=== PATIENT | female | born 1985 | race Caucasian/White ===

== ENCOUNTER 2017-01-02 20:49 | Emergency (ER) | payer BC ==
[~2017-01-02] VITALS: Ht 157.5 cm; Wt 73.0 kg
[2017-01-02 20:58] VITALS: Ht 157.5 cm; Wt 73.0 kg
[2017-01-02] MEDS ORDERED: morphine 4 MG/ML VIAL IV STA (21:14)
[2017-01-02] MEDS ORDERED: ONDANSETRON 4 MG INJ IV STA (21:14)
[2017-01-02] MEDS ORDERED: SOD CHLORIDE 0.9% 1,000 ML IV STA (21:14)
[2017-01-02 21:46] LABS: ADD SCAN DIFF NO
[2017-01-02 21:50] LABS: BASOPHILS % 0.4 % (0.0-2.0); EOSINOPHILS # 0.3 10^3/ul (0.0-0.5); EOSINOPHILS % 3.4 % (0.0-7.0); HEMATOCRIT 37.2 % (37.0-47.0); HEMOGLOBIN 12.2 g/dl (12.0-16.0); LYMPHOCYTES # 2.1 10^3/ul (0.8-2.9); LYMPHOCYTES % 29.3 % (15.0-51.0); MEAN CORPUSCULAR HEMOGLOBIN 29.5 pg (29.0-33.0); MEAN CORPUSCULAR HGB CONC 32.8 g/dl (32.0-37.0); MEAN CORPUSCULAR VOLUME 90.1 fl (82.0-101.0); MEAN PLATELET VOLUME 10.1 fl (7.4-10.4); MONOCYTE # 0.6 10^3/ul (0.3-0.9); MONOCYTES % 8.8 % (0.0-11.0); NEUTROPHIL # 4.2 10^3/ul (1.6-7.5); PLATELET COUNT 303 10^3/UL (140-415); RED BLOOD COUNT 4.13 10^6/ul (4.20-5.40); RED CELL DISTRIBUTION WIDTH 13.2 % (11.5-14.5); WHITE BLOOD COUNT 7.3 10^3/ul (4.8-10.8)
[2017-01-02 21:54] LABS: ADD UMIC YES; UR BILIRUBIN (Dip) NEGATIVE (NEGATIVE); UR BLOOD (Dip) NEGATIVE (NEGATIVE); UR CLARITY CLEAR (CLEAR); UR COLOR LT. YELLOW (YELLOW); UR GLUCOSE (Dip) NEGATIVE (NEGATIVE); UR KETONES (Dip) NEGATIVE (NEGATIVE); UR LEUKOCYTE ESTERASE (Dip) 1+ (NEGATIVE); UR NITRITE (Dip) NEGATIVE (NEGATIVE); UR TOTAL PROTEIN (Dip) NEGATIVE (NEGATIVE); UR UROBILINOGEN (Dip) 0.2 E.U./dL (0.1-1.0)
[2017-01-02 22:01] LABS: URINE RBCS NONE SEEN /HPF (0)
[2017-01-02 22:08] LABS: ALBUMIN 4.5 g/dl (3.3-4.9); ALBUMIN/GLOBULIN RATIO 1.6; BILIRUBIN,INDIRECT 0.1 mg/dl (0-1.1); BILIRUBIN,TOTAL 0.1 mg/dl (0.2-1.3); CALCIUM 8.5 mg/dl (8.4-10.2); CREATININE 0.67 mg/dl (0.44-1.00); POTASSIUM 4.2 mmol/L (3.5-5.1); TOTAL PROTEIN 7.3 g/dl (6.1-8.1)
--- NOTE | 2017-01-02 23:05 | RADRPT ---
PROCEDURE: CT abdomen and pelvis without contrast. CLINICAL INDICATION: Abdominal pain TECHNIQUE: CT scan of the abdomen and pelvis without contrast was performed. Sagittal and coronal reformatted images were obtained from the axial source images. CTDI = 10.43 mGy; DLP = 572.10 mGy-c m COMPARISON: None. FINDINGS: Visualized lower thorax: Minimal dependent right lower lobe subsegmental atelectasis, the left lung base is clear. There is no evidence for pleural effusion. Liver, gallbladder, pancreas and spleen: The liver is normal and size, contour and attenuation. Th ere is no evidence for a liver mass or ductal dilatation. The gallbladder is contracted but otherwi se unremarkable. No common bile duct abnormality is demonstrated. The pancreas is unremarkable. T he spleen is normal in size. Adrenal glands and genitourinary system: The adrenal glands are normal bilaterally. The kidneys are normal and size, contour and attenuation with no evidence for masses, calculi or hydronephrosis. T he ureters are unremarkable. No urinary bladder abnormality is demonstrated. The uterus and adnexa are unremarkable. There is no evidence of free fluid in the cul-de-sac. Gastrointestinal system: The stomach is normal in caliber with no abnormality of significance. The small bowel is normal in caliber with no ileus, obstruction or wall thickening. There is no evidenc e of appendicitis. A moderate to marked amount of fecal debris throughout the colon is concerning f or constipation. There is no evidence for colitis or diverticulitis. Peritoneum, retroperitoneum, lymph nodes and vessels: The abdominal aorta is normal in caliber. The re is no evidence for atherosclerotic calcification. The inferior vena cava is unremarkable. There is no evidence for adenopathy or mass. There is no ascites. No pneumoperitoneum is present Osseous structures and musculoskeletal findings: There is no fracture, lytic or blastic lesion. No muscular abnormality or soft tissue pathology is present. RPTAT:HJJR IMPRESSION: Constipation pattern without evidence of acute intra-abdominal or intrapelvic pathology. Physician Kelly Date Time Electronically viewed and signed by Physician Kelly on 01/02/2017 23:05 JR/
[2017-01-02] MEDS ORDERED: DOCU100T9 PO (23:31)
[2017-01-02] MEDS ORDERED: NITR-58 PO (23:31)
[2017-01-02] MEDS ORDERED: IBUP-1542 PO (23:32)
[2017-01-02 23:56] VITALS: BP 135/78; PULSE 68; RESP 17
--- NOTE | 2017-01-03 01:52 | ERD ---
ER Documentation Chief Complaint Date/Time DATE: 01/03/17 TIME: 01:51 Chief Complaint RT SIDED ABD/BACK/NECK PAIN, BLOATED, INDIGESTION. NAUSEA TAKES ZOFRAN. HPI This is a 31-year-old female presents to the ER with multiple complaints. Patient states that she has been having lower back pain over the last 2 weeks. Yesterday patient began to have generalized abdominal pain with bloating and indigestion. She went to an urgent care yesterday and was given Zofran. Patient is also complaining of nausea however denies vomiting or diarrhea. She denies any fevers or chills. She denies any urinary frequency or dysuria. Patient denies any back trauma. She denies any urine or bowel incontinence. She denies saddle like anesthesia. ROS 12 point review of systems was done, all negative except per HPI. Medications Home Meds Active Scripts Ibuprofen* (Motrin*) 600 Mg Tab, 600 MG PO Q6, #30 TAB Prov:ARIANNE GARLAND 01/02/17 Docusate Sodium (Stool Softener) 100 Mg Tablet, 100 MG PO BID Y for constipation for 3 Days, TAB Prov:ARIANNE GARLAND C 01/02/17 Nitrofurantoin Monohyd Macrocr* (Macrobid*) 100 Mg Capsr, 100 MG PO BID for 7 Days, CAP Prov:DADA,ARIANNE C 01/02/17 PMhx/Soc Medical and Surgical Hx: pt denies Surgical Hx History of Surgery: No Anesthesia Reaction: No Hx Neurological Disorder: No Hx Respiratory Disorders: No Hx Cardiac Disorders: No Hx Psychiatric Problems: No Hx Miscellaneous Medical Probl: No (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 NECK; no c-spine tenderness, no crepitus or step off's. HEENT: Atraumatic. CHEST: Clear to auscultation bilaterally. There are no rales, wheezes or rhonchi. HEART: Regular rate and rhythm. No murmurs, clicks, rubs or gallops. ABDOMEN: Soft, nontender and nondistended. Good bowel sounds. No rebound or guarding. No gross peritonitis. No gross organomegaly or masses. No Leon sign or McBurney point tenderness. no pulsatile masses BACK: No midline or flank tenderness. No lumbar spine tenderness. No step- offs. negative straight leg test EXTREMITIES: patient has full ROM of bilateral upper and lower extremities. strength and sensation is intact. NEURO: Alert and oriented. SKIN: There is no apparent rash or petechia. The skin is warm and dry. Results 24 hrs Laboratory Tests Test 01/02/17 21:35 01/02/17 21:40 White Blood Count 7.310^3/ul Red Blood Count 4.1310^6/ul Hemoglobin 12.2g/dl Hematocrit 37.2% Mean Corpuscular Volume 90.1fl Mean Corpuscular Hemoglobin 29.5pg Mean Corpuscular Hemoglobin Concent 32.8g/dl Red Cell Distribution Width 13.2% Platelet Count 39513^3/UL Mean Platelet Volume 10.1fl Neutrophils % 58.0% Lymphocytes % 29.3% Monocytes % 8.8% Eosinophils % 3.4% Basophils % 0.4% Nucleated Red Blood Cells % 0.0/100WBC Neutrophils # 4.210^3/ul Lymphocytes # 2.110^3/ul Monocytes # 0.610^3/ul Eosinophils # 0.310^3/ul Basophils # 0.010^3/ul Nucleated Red Blood Cells # 0.010^3/ul Sodium Level 140mmol/L Potassium Level 4.2mmol/L Chloride Level 105mmol/L Carbon Dioxide Level 29mmol/L Anion Gap 10 Blood Urea Nitrogen 8mg/dl Creatinine 0.67mg/dl Glucose Level 85mg/dl Calcium Level 8.5mg/dl Total Bilirubin 0.1mg/dl Direct Bilirubin 0.00mg/dl Indirect Bilirubin 0.1mg/dl Aspartate Amino Transf (AST/SGOT) 42IU/L Alanine Aminotransferase (ALT/SGPT) 39IU/L Alkaline Phosphatase 110IU/L Total Protein 7.3g/dl Albumin 4.5g/dl Globulin 2.80g/dl Albumin/Globulin Ratio 1.60 Lipase 134U/L Urine Color LT. YELLOW Urine Clarity CLEAR Urine pH 7.5 Urine Specific [place] <=1.005 Urine Ketones NEGATIVE Urine Nitrite NEGATIVE Urine Bilirubin NEGATIVE Urine Urobilinogen 0.2 E.U./dL Urine Leukocyte Esterase 1+ Urine Microscopic RBC NONE SEEN/HPF Urine Microscopic WBC 2-5/HPF Urine Epithelial Cells MODERATE Urine Hemoglobin NEGATIVE Urine Glucose NEGATIVE% Urine Total Protein NEGATIVE Current Medications Medications (Trade) Dose Ordered Sig/Reggie Route PRN Reason Start Time Stop Time Status Last Admin Dose Admin Sodium Chloride (NS) 1,000 ml @ 1,000 mls/hr Q1H STAT IV 01/02/17 21:14 01/02/17 22:13 DC 01/02/17 21:49 Morphine Sulfate (morphine) 6 mg ONCE STAT IV 01/02/17 21:14 01/02/17 21:17 DC 01/02/17 21:48 Ondansetron HCl (Zofran Inj) 4 mg ONCE STAT IV 01/02/17 21:14 01/02/17 21:17 DC 01/02/17 21:41 Procedures/MDM Differential Diagnosis: GERD, gastritis, peptic ulcer disease, pancreatitis, cholecystitis, choledocholithiasis, biliary colic, cholangitis, appendicitis, AAA, [id number], ACS/SD, Pnuemonia. Suspicion for acute abdomen is low, patients abdominal exam is benign and her diagnostic studies are negative for acute abdomen. Patient was found to have some constipation and a UTI. She will be treated for this. Patient needs to f/u with her PCP within 1-2 days or return to ER sooner if symptoms worsen. My medical decision making was shared with the patient, she understands and agrees with the plan. Departure Diagnosis: Primary Impression: Constipation Additional Impression: UTI (urinary tract infection) Condition: Stable Patient Instructions: Understanding Urinary Tract Infections (UTIs), Constipation (Adult) Additional Instructions: Call your primary care doctor TOMORROW for an appointment during the next 1-2 days.See the doctor sooner or return here if your condition worsens before your appointment time. ARIANNE GARLAND Jan 03, 2017 01:52 ARIANNE GARLAND Jan 03, 2017 01:52
== END 2017-01-02 23:57 | disposition home or self-care (01) ==
LOC: FTE 20:49
DX: K59.00 Constipation, unspecified (principal); N39.0 Urinary tract infection, site not specified; F17.210 Nicotine dependence, cigarettes, uncomplicated; R11.0 Nausea
CPT/HCPCS: 36415; 74176; 80053; 81001; 83690; 85025; 96361; 96374; 96375; J2270; J2405; J7030; Z7502

== ENCOUNTER 2017-07-13 15:35 | Emergency (ER) | payer BC, OTHER ==
[~2017-07-13] VITALS: Wt 77.2 kg
[~2017-07-13 15:35] MED LIST: DOCU100T9 PO; IBUP-1542 PO; NITR-58 PO
[2017-07-13] MEDS ORDERED: SOD CHLORIDE 0.9% 1,000 ML IV STA (17:49)
[2017-07-13] MEDS ORDERED: ONDANSETRON 4 MG INJ IV STA (17:49)
[2017-07-13] MEDS ORDERED: KETOROLAC 30 MG INJ IV STA (17:49)
[2017-07-13 18:30] LABS: ADD UMIC YES; UR ASCORBIC ACID NEGATIVE (NEGATIVE); UR BILIRUBIN (Dip) NEGATIVE (NEGATIVE); UR BLOOD (Dip) NEGATIVE (NEGATIVE); UR CLARITY SLIGHTLY CLOUDY (CLEAR); UR COLOR YELLOW (YELLOW); UR GLUCOSE (Dip) NEGATIVE (NEGATIVE); UR KETONES (Dip) NEGATIVE (NEGATIVE); UR LEUKOCYTE ESTERASE (Dip) TRACE Leu/ul (NEGATIVE); UR NITRITE (Dip) NEGATIVE (NEGATIVE); UR RBC 2 /HPF (0-5); UR SPECIFIC GRAVITY (Dip) 1.004 (1.003-1.030); UR SQUAMOUS EPITHELIAL CELL FEW /HPF (FEW); UR TOTAL PROTEIN (Dip) NEGATIVE (NEGATIVE); UR UROBILINOGEN (Dip) NEGATIVE (NEGATIVE)
[2017-07-13 18:54] LABS: BASOPHIL # 0.1 10^3/ul (0.0-0.1); BASOPHILS % 0.5 % (0.0-2.0); EOSINOPHILS # 0.2 10^3/ul (0.0-0.5); EOSINOPHILS % 2.3 % (0.0-7.0); HEMOGLOBIN 12.6 g/dl (12.0-16.0); LYMPHOCYTES # 3.1 10^3/ul (0.8-2.9); LYMPHOCYTES % 33.7 % (15.0-51.0); MEAN CORPUSCULAR HEMOGLOBIN 28.3 pg (29.0-33.0); MEAN CORPUSCULAR HGB CONC 33.2 g/dl (32.0-37.0); MEAN CORPUSCULAR VOLUME 85.4 fl (82.0-101.0); MEAN PLATELET VOLUME 9.6 fl (7.4-10.4); MONOCYTE # 0.7 10^3/ul (0.3-0.9); MONOCYTES % 7.4 % (0.0-11.0); NEUTROPHIL # 5.1 10^3/ul (1.6-7.5); NEUTROPHILS % 55.8 % (39.0-77.0); PLATELET COUNT 306 10^3/UL (140-415); RED BLOOD COUNT 4.45 10^6/ul (4.20-5.40); RED CELL DISTRIBUTION WIDTH 13.7 % (11.5-14.5); WHITE BLOOD COUNT 9.2 10^3/ul (4.8-10.8)
[2017-07-13 19:16] LABS: ALBUMIN 4.1 g/dl (3.3-4.9); ALBUMIN/GLOBULIN RATIO 1.1; BILIRUBIN,INDIRECT 0.1 mg/dl (0-1.1); BILIRUBIN,TOTAL 0.1 mg/dl (0.2-1.3); CALCIUM 9.2 mg/dl (8.4-10.2); CREATININE 0.82 mg/dl (0.44-1.00); POTASSIUM 4.3 mmol/L (3.5-5.1); TOTAL PROTEIN 7.8 g/dl (6.1-8.1)
--- NOTE | 2017-07-13 19:49 | RADRPT ---
PROCEDURE: CT abdomen and pelvis without contrast. CLINICAL INDICATION: Abdominal Pain TECHNIQUE: CT scan of the abdomen and pelvis without contrast was performed and is reconstructed a t 2.5 mm contiguous axial intervals from the dome of the diaphragm to the inferior pubic rami.. The patient was scanned without intravenous contrast. Sagittal and coronal reformatted images were obt ained from the axial source images. The calculated radiation dose measures 619 mGy centimeters. The CTDI measures and 11 mGy. Individualized dose optimization technique was used for the performance of this exam. This included 1. Automated exposure control. 2. Adjustment of the mA and / or kV according to the patient's size. 3. Use of iterative reconstructed technique. COMPARISON: CT abdomen pelvis January 02, 2017 FINDINGS: The lung bases are clear of any infiltrate or nodule. No effusion is seen. The liver is of normal size, contour and attenuation with no mass or ductal dilatation. No gallston es are visualized. No splenic, adrenal or pancreatic abnormalities present. Kidneys are of normal size and contour. No hydronephrosis, calculus or masses seen. Ureters are o f normal course and caliber with no stone. No bladder mass or stone is present. Uterus is unremarka ble. No adnexal mass is seen. There is no aneurysm. No adenopathy is present. No bowel mass or obstruction is present. The appendix is normal. No phlegmon, ascites or pneumop eritoneum is visualized. The osseous structures are intact. IMPRESSION: No evidence of urolithiasis, obstructive uropathy, diverticulitis or appendicitis. .Justin Kaur MD, MD Date Time Electronically viewed and signed by .Justin Kaur MD, on 07/13/2017 19:48 .A/
[2017-07-13] MEDS ORDERED: CIPR500T4 PO (20:03)
--- NOTE | 2017-07-13 20:15 | ERD ---
ER Documentation Chief Complaint Chief Complaint left flank pain with frequency x 3 weeks HPI 32-year-old female complaining of left flank pain with frequency 3 weeks. Patient states it she was diagnosed with a urinary tract infection last week and has been taking Macrobid however she had left flank pain at that time. Denies fever but has nausea and headache. Denies abdominal pain. Denies hematuria. Denies changes in bowel movement. Has never had this type of flank pain in the past. Denies nephrolithiasis history. Denies medical problems. NKDA. Surgical history: Denies. Social history: Denies. ROS All systems reviewed and are negative except as per history of present illness. Medications Home Meds Active Scripts Ciprofloxacin Hcl* (Ciprofloxacin Hcl*) 500 Mg Tablet, 500 MG PO BID for 7 Days , TAB Prov:YARITZA SARAVIA PA-C 07/13/17 Ibuprofen* (Motrin*) 600 Mg Tab, 600 MG PO Q6, #30 TAB Prov:ARIANNE GARLAND 01/02/17 Docusate Sodium (Stool Softener) 100 Mg Tablet, 100 MG PO BID Y for constipation for 3 Days, TAB Prov:ELANA GARLANDNA Divya 01/02/17 Nitrofurantoin Monohyd Macrocr* (Macrobid*) 100 Mg Capsr, 100 MG PO BID for 7 Days, CAP Prov:DADA,ARIANNE C 01/02/17 PMhx/Soc Medical and Surgical Hx: pt denies Medical Hx, pt denies Surgical Hx History of Surgery: No Anesthesia Reaction: No Hx Neurological Disorder: No Hx Respiratory Disorders: No Hx Cardiac Disorders: No Hx Psychiatric Problems: No Hx Miscellaneous Medical Probl: No (currently on methadone treatment, gastritis ) Hx Alcohol Use: No (glass of wine/ week) Hx Substance Use: Yes (currently on methadone) Hx Tobacco Use: Yes (1/2 pack/ day) Smoking Status: Never smoker Physical Exam Vitals Vital Signs Date Time Temp Pulse Resp B/P Pulse Ox O2 Delivery O2 Flow Rate FiO2 07/13/17 15:57 98.1 86 19 131/71 99 Physical Exam GENERAL: The patient is well-appearing, well-nourished, in no acute distress CHEST: Clear to auscultation bilaterally. There are no rales, wheezes or rhonchi. HEART: Regular rate and rhythm. No murmurs, clicks, rubs or gallops. No S3 or S4. ABDOMEN:Soft, nontender and nondistended. Good bowel sounds. No rebound or guarding. No gross peritonitis. No gross organomegaly or masses. No Leon sign or McBurney point tenderness. BACK: Questionable CVA tenderness with left-sided flank pain. No distention. Skin changes. SKIN: No rashes. Result Diagram: 07/13/17 1845 07/13/17 1845 Results 24 hrs Laboratory Tests Test 07/13/17 18:15 07/13/17 18:45 Urine Color YELLOW Urine Clarity SLIGHTLY CLOUDY Urine pH 5.0 Urine Specific [place] 1.004 Urine Ketones NEGATIVEmg/dL Urine Nitrite NEGATIVEmg/dL Urine Bilirubin NEGATIVEmg/dL Urine Urobilinogen NEGATIVEmg/dL Urine Leukocyte Esterase TRACELeu/ul Urine Microscopic RBC 2/HPF Urine Microscopic WBC 1/HPF Urine Squamous Epithelial Cells FEW/HPF Urine Hemoglobin NEGATIVEmg/dL Urine Glucose NEGATIVEmg/dL Urine Total Protein NEGATIVEmg/dl White Blood Count 9.210^3/ul Red Blood Count 4.4510^6/ul Hemoglobin 12.6g/dl Hematocrit 38.0% Mean Corpuscular Volume 85.4fl Mean Corpuscular Hemoglobin 28.3pg Mean Corpuscular Hemoglobin Concent 33.2g/dl Red Cell Distribution Width 13.7% Platelet Count 07439^3/UL Mean Platelet Volume 9.6fl Neutrophils % 55.8% Lymphocytes % 33.7% Monocytes % 7.4% Eosinophils % 2.3% Basophils % 0.5% Nucleated Red Blood Cells % 0.0/100WBC Neutrophils # 5.110^3/ul Lymphocytes # 3.110^3/ul Monocytes # 0.710^3/ul Eosinophils # 0.210^3/ul Basophils # 0.110^3/ul Nucleated Red Blood Cells # 0.010^3/ul Sodium Level 141mmol/L Potassium Level 4.3mmol/L Chloride Level 101mmol/L Carbon Dioxide Level 30mmol/L Anion Gap 14 Blood Urea Nitrogen 12mg/dl Creatinine 0.82mg/dl Glucose Level 92mg/dl Calcium Level 9.2mg/dl Total Bilirubin 0.1mg/dl Direct Bilirubin 0.00mg/dl Indirect Bilirubin 0.1mg/dl Aspartate Amino Transf (AST/SGOT) 32IU/L Alanine Aminotransferase (ALT/SGPT) 44IU/L Alkaline Phosphatase 133IU/L Total Protein 7.8g/dl Albumin 4.1g/dl Globulin 3.70g/dl Albumin/Globulin Ratio 1.10 Lipase 150U/L Serum HCG, Qualitative NEGATIVE Current Medications Medications (Trade) Dose Ordered Sig/Reggie Route PRN Reason Start Time Stop Time Status Last Admin Dose Admin Sodium Chloride (NS) 1,000 ml @ 1,000 mls/hr Q1H STAT IV 07/13/17 17:49 07/13/17 18:48 DC 07/13/17 19:00 Ondansetron HCl (Zofran Inj) 4 mg ONCE STAT IV 07/13/17 17:49 07/13/17 17:51 DC 07/13/17 18:58 Ketorolac Tromethamine (Toradol) 30 mg ONCE STAT IV 07/13/17 17:49 07/13/17 17:51 DC 07/13/17 18:59 Procedures/MDM DIAGNOSTIC IMAGING REPORT Patient: SANTHOSH PRITCHETT : 1985 Age: 32 Sex: F MR #: [id number] DOS: 07/13/17 1749 Ordering MD: EDGARDO SARAVIA PA-C Location: [facility] Room/Bed: PROCEDURE: CT abdomen and pelvis without contrast. CLINICAL INDICATION: Abdominal Pain TECHNIQUE: CT scan of the abdomen and pelvis without contrast was performed and is reconstructed at 2.5 mm contiguous axial intervals from the dome of the diaphragm to the inferior pubic rami.. The patient was scanned without intravenous contrast. Sagittal and coronal reformatted images were obtained from the axial source images. The calculated radiation dose measures 619 mGy centimeters. The CTDI measures and 11 mGy. Individualized dose optimization technique was used for the performance of this exam. This included 1. Automated exposure control. 2. Adjustment of the mA and / or kV according to the patient's size. 3. Use of iterative reconstructed technique. COMPARISON: CT abdomen pelvis January 02, 2017 FINDINGS: The lung bases are clear of any infiltrate or nodule. No effusion is seen. The liver is of normal size, contour and attenuation with no mass or ductal dilatation. No gallstones are visualized. No splenic, adrenal or pancreatic abnormalities present. Kidneys are of normal size and contour. No hydronephrosis, calculus or masses seen. Ureters are of normal course and caliber with no stone. No bladder mass or stone is present. Uterus is unremarkable. No adnexal mass is seen. There is no aneurysm. No adenopathy is present. No bowel mass or obstruction is present. The appendix is normal. No phlegmon , ascites or pneumoperitoneum is visualized. The osseous structures are intact. IMPRESSION: No evidence of urolithiasis, obstructive uropathy, diverticulitis or appendicitis. ER Course: 1L NS and IV toradol given in ED. MDM: 32-year-old female complaining of left-sided flank pain. I have low suspicion for pelvic emergency as patient's pelvic exam is non-concerning. I have low suspicion for nephrolithiasis or septic stone as no stone is appreciated on CT scan. I have low suspicion for other acute abdominal emergencies patient's abdominal exam is non-concerning and CT scan is within normal limits. Patient has been recently taking Macrobid for urinary tract infection. She states that the time of UTI diagnosis she did have left flank pain and CVA tenderness at that time. I have concern that patient may have continued urinary tract infection with early pyelonephritis as Macrobid does not penetrate the kidney tissues. I will treat patient with a stronger antibiotic. Patient's urine does not show signs of infection but that may be masked from her recent antibiotic of Macrobid. Suspicion for ectopic as patient's urine is negative. Patient is discharged with strict ER precautions and recommended to return to the ER symptoms change or worsen. Patient is recommended to follow-up with PMD within 1-2 days for close evaluation. All questions answered at discharge Departure Diagnosis: Primary Impression: Flank pain Condition: Stable Patient Instructions: Flank Pain, Uncertain Cause Referrals: COMMUNITY CLINICS YOU HAVE RECEIVED A MEDICAL SCREENING EXAM AND THE RESULTS INDICATE THAT YOU DO NOT HAVE A CONDITION THAT REQUIRES URGENT TREATMENT IN THE EMERGENCY DEPARTMENT. FURTHER EVALUATION AND TREATMENT OF YOUR CONDITION CAN WAIT UNTIL YOU ARE SEEN IN YOUR DOCTORS OFFICE WITHIN THE NEXT 1-2 DAYS. IT IS YOUR RESPONSIBILITY TO MAKE AN APPOINTMENT FOR FOLOW-UP CARE. IF YOU HAVE A PRIMARY DOCTOR --you should call your primary doctor and schedule an appointment IF YOU DO NOT HAVE A PRIMARY DOCTOR YOU CAN CALL OUR PHYSICIAN REFERRAL HOTLINE AT IF YOU CAN NOT AFFORD TO SEE A PHYSICIAN YOU CAN CHOSE FROM THE FOLLOWING [facility] [address] [facility] [address] [facility] [address] [facility] [address] [facility] [address] [address] [facility] [facility] [address] Additional Instructions: FOLLOW UP WITH YOUR PRIMARY CARE PHYSICIAN TOMORROW.Return to this facility if you are not improving as expected. YARITZA SARAVIA PA-C Jul 13, 2017 20:15
[2017-07-13 20:29] VITALS: BP 109/57; PULSE 59; RESP 19
== END 2017-07-13 20:30 | disposition home or self-care (01) ==
LOC: FTE 15:35
DX: R10.9 Unspecified abdominal pain (principal); F17.210 Nicotine dependence, cigarettes, uncomplicated
CPT/HCPCS: 36415; 74176; 80053; 81001; 83690; 84703; 85025; 87086; 96374; 96375; J1885; J2405; J7030; Z7502

== ENCOUNTER 2018-01-13 15:25 | Emergency (ER) | END 2018-01-13 17:50 | disposition home or self-care (01) ==